=== PATIENT | male | born 1945 | race Caucasian/White ===

== ENCOUNTER 2018-09-17 05:51 | Day surgery (SDC) | payer MEDICARE, MEDICAID ==
[~2018-09-17] VITALS: Ht 188 cm; Wt 60.6 kg
[2018-09-17] VITALS (20 sets, daily range): BP systolic 107–172; BP diastolic 62–133
[2018-09-17] MEDS ORDERED: phenylephrine 1% (X-tra strg) 15ml nasal spray NS ONE (06:10)
[2018-09-17] MEDS ORDERED: LIDOcaine 4% (40 mg/ml) topical solution 50ml TP ONE (06:10)
[2018-09-17] MEDS ORDERED: morphine 4 MG/ML inj SYRINge IV PRN (06:10)
[2018-09-17] MEDS ORDERED: LIDOcaine Viscous 15ml cup MM ONE ×2 (06:10→06:30)
[2018-09-17] MEDS ORDERED: morphine 4 MG/ML inj SYRINge IM PRN (06:31)
[2018-09-17 07:19] LABS: BASOPHILS # (AUTO) 0.1 X10'3 (0-0.2); BASOPHILS % (AUTO) 0.9 % (0-1); EOSINOPHILS # (AUTO) 0.4 X10'3 (0-0.9); EOSINOPHILS % (AUTO) 5.2 % (0-6); LYMPHOCYTES # (AUTO) 1.6 X10'3 (1.1-4.8); LYMPHOCYTES % (AUTO) 19.6 % (21-51); MEAN CORPUSCULAR HEMOGLOBIN 31.7 PG (27.0-31.0); MEAN PLATELET VOLUME 8.6 FL (7.4-10.4); MONOCYTES # (AUTO) 0.7 X10'3 (0-0.9); MONOCYTES % (AUTO) 8.3 % (2-12); NEUTROPHILS # (AUTO) 5.4 X10'3 (1.8-7.7); PRE OP HEMATOCRIT 38.1 % (42.0-52.0); PRE OP HEMOGLOBIN 12.6 g/dL (14.0-17.9); PRE OP PLATELET COUNT 170 X10'3 (140-440); RED BLOOD COUNT 3.97 X10'6 (4.70-6.10); RED CELL DISTRIBUTION WIDTH 14.3 % (11.5-14.5)
[2018-09-17] MEDS ORDERED: midazolam 2 mg/2 ml injection ONE (07:52)
[2018-09-17] MEDS ORDERED: naloxone 0.4 mg/ml inj ONE (07:53)
[2018-09-17] MEDS ORDERED: MISO100T47 PO (07:57)
[2018-09-17] MEDS ORDERED: VENL-190 PO (07:57)
[2018-09-17] MEDS ORDERED: HYDR-4353 PO (07:57)
[2018-09-17] MEDS ORDERED: DOCU-28 PO (07:57)
[2018-09-17] MEDS ORDERED: LISI-600 PO (07:57)
[2018-09-17] MEDS ORDERED: LORA1TAB PO (07:57)
[2018-09-17] MEDS ORDERED: NITR0.4T51 SL (07:57)
[2018-09-17] MEDS ORDERED: LEVO50TA8 PO (07:57)
[2018-09-17] MEDS ORDERED: TRAZ150T78 PO (07:57)
[2018-09-17] MEDS ORDERED: AMLO-93 PO (07:57)
[2018-09-17] MEDS ORDERED: OMEP-271 PO (07:57)
[2018-09-17] MEDS ORDERED: DABI150C PO (07:57)
[2018-09-17] MEDS ORDERED: LIDOCAINE 4% (40MG/ML) topical solution 50ml **BRONCH ONLY ONE (07:59)
[2018-09-17] MEDS ORDERED: phenylephrine 1% Nasal spray (extra-strength) 15 ML bottle **bronch room NS ONE (07:59)
[2018-09-17] MEDS ORDERED: lidocaine 2% viscous 15 ML cup ***bronch room only MM ONE (07:59)
[2018-09-17] MEDS ORDERED: epiNEPHrine 1 MG/ML 1 ml ampule **BRONCH ONLY ONE (07:59)
[2018-09-18] MEDS ORDERED: midazolam 2 mg/2 ml injection IV ONE (14:55)
== END 2018-09-17 11:45 | disposition home or self-care (01) ==
LOC: SSTAY O 05:51
PROVIDERS: ATTEND Internal Medicine Pulmonary Disease
DX: C34.11 Malignant neoplasm of upper lobe, right bronchus or lung (principal); J98.09 Other diseases of bronchus, not elsewhere classified; J44.9 Chronic obstructive pulmonary disease, unspecified; I25.810 Atherosclerosis of coronary artery bypass graft(s) without angina pectoris; F17.210 Nicotine dependence, cigarettes, uncomplicated; M19.90 Unspecified osteoarthritis, unspecified site; I12.9 Hypertensive chronic kidney disease with stage 1 through stage 4 chronic kidney disease, or unspecified chronic kidney disease; N18.9 Chronic kidney disease, unspecified; Z87.2 Personal history of diseases of the skin and subcutaneous tissue; Z95.0 Presence of cardiac pacemaker; Z79.891 Long term (current) use of opiate analgesic; Z86.73 Personal history of transient ischemic attack (TIA), and cerebral infarction without residual deficits; Z86.74 Personal history of sudden cardiac arrest; Z87.01 Personal history of pneumonia (recurrent); Z87.828 Personal history of other (healed) physical injury and trauma; Z95.1 Presence of aortocoronary bypass graft; Z98.890 Other specified postprocedural states; Z79.899 Other long term (current) drug therapy; Z80.1 Family history of malignant neoplasm of trachea, bronchus and lung; Z80.9 Family history of malignant neoplasm, unspecified
CPT/HCPCS: 31629; 36415; 82378; 85025; 87070; 94640; J0171; J2250; J2270; J2310; 31622; 31628; 76499; 88108; 88173; 88305